=== PATIENT | male | born 1975 | race Caucasian/White ===

== ENCOUNTER 2020-09-05 11:12 | Emergency (ER) | payer MEDICAID ==
[~2020-09-05] VITALS: Ht 177.8 cm; Wt 129.3 kg
--- NOTE | 2020-09-05 11:12 | NUR ---
Pt brought by self, A&Ox4, pt presents to ER with swelling/redness/pain on L foot, skin pink and warm, cap refill <3, VSS
[2020-09-05 11:21] VITALS: BP_SYST 151
--- NOTE | 2020-09-05 11:24 | NUR ---
Patient to ER bed Tent 1 to gown for evaluation. Side rails up.
--- NOTE | 2020-09-05 11:26 | NUR ---
Dr Castañeda evaluaitng patient in the tent
[2020-09-05 11:48] VITALS: BP_SYST 151
--- NOTE | 2020-09-05 11:49 | NUR ---
Patient given written and verbal discharge instructions and verbalizes understanding. ER MD discussed with patient the results and treatment provided. Patient in stable condition. ID arm band removed. Rx of keflex given. Patient educated on pain management and to follow up with PMD. Pain Scale 3/10 tolerable for patient. Opportunity for questions provided and answered. Medication side effect fact sheet provided.
== END 2020-09-05 11:49 | disposition home or self-care (01) ==
LOC: SED 11:12
DX: L03.116 Cellulitis of left lower limb (principal); F11.90 Opioid use, unspecified, uncomplicated
CPT/HCPCS: 99283

== ENCOUNTER 2020-09-26 10:44 | Emergency (ER) | payer MEDICAID ==
[~2020-09-26] VITALS: Ht 177.8 cm; Wt 113.4 kg
[2020-09-26 10:55] VITALS: BP_SYST 140
[2020-09-26] MEDS ORDERED: SULF1TAB48 PO (11:07)
[2020-09-26] MEDS ORDERED: CEPH-568 PO (11:07)
[2020-09-26 11:15] VITALS: BP_SYST 140
== END 2020-09-26 11:15 | disposition home or self-care (01) ==
LOC: SED 10:44
DX: L03.116 Cellulitis of left lower limb (principal)
CPT/HCPCS: 99283

== ENCOUNTER 2020-11-16 21:02 | Emergency (ER) | payer MEDICAID ==
[~2020-11-16] VITALS: Ht 177.8 cm; Wt 113.4 kg
[~2020-11-16 21:02] MED LIST: CEPH-568 PO; SULF1TAB48 PO
[2020-11-16 21:05] VITALS: BP_SYST 152
[2020-11-16] MEDS ORDERED: LEVO50CA4 PO (21:12)
[2020-11-16] MEDS ORDERED: LISI20TA30 PO (21:13)
[2020-11-16] MEDS: LIDOCAINE 1% 10 MG/ML, 20 ML MDV INJ ONE (22:30)
[2020-11-16] MEDS: BACITRACIN 1 GM OINT TP ONE (22:30)
[2020-11-16] MEDS ORDERED: CLIN300C12 PO (22:35)
[2020-11-16] MEDS: DIPH-TET-PERTUS Vaccine 0.5 ML VIAL (ADACEL) I.M. ONE (22:38)
[2020-11-16 22:45] VITALS: BP_SYST 130
== END 2020-11-16 22:45 | disposition home or self-care (01) ==
LOC: SED 21:02
DX: L02.414 Cutaneous abscess of left upper limb (principal); Z79.899 Other long term (current) drug therapy
CPT/HCPCS: 10060; 90471; 90715; 99283; J2001

== ENCOUNTER 2020-12-03 14:19 | Emergency (ER) | payer MEDICAID ==
[~2020-12-03] VITALS: Ht 177.8 cm; Wt 111.1 kg
[~2020-12-03 14:19] MED LIST changes: +CLIN300C12 PO; +LEVO50CA4 PO; +LISI20TA30 PO
[2020-12-03 14:29] VITALS: BP_SYST 142
[2020-12-03 15:28] LABS: BASOPHILS % (AUTO) 0.2 % (0.0-2.0); EOSINOPHILS % (AUTO) 0.7 % (0.0-4.0); HEMATOCRIT 38.1 % (36-54); HEMOGLOBIN 13.5 g/dL (14.0-18.0); LYMPHOCYTES % (AUTO) 28.4 % (20.5-51.5); MEAN CORPUSCULAR HEMOGLOBIN 31 pg (27-31); MEAN CORPUSCULAR HGB CONC 35 % (32-36); MEAN CORPUSCULAR VOLUME 87 fL (79.0-98.0); MONOCYTES # (AUTO) 0.7 K/uL (0.0-1.0); MONOCYTES % (AUTO) 9.7 % (1.7-9.3); NEUTROPHILS # (AUTO) 4.4 K/uL (1.8-7.7); PLATELET COUNT (AUTO) 122 K/uL (130-430); RED BLOOD CELL COUNT(AUTO) 4.36 MIL/uL (4.2-6.2); RED CELL DISTRIBUTION WIDTH 13.2 % (9.0-15.0); WHITE BLOOD COUNT (AUTO) 7.2 K/uL (4.8-10.8)
[2020-12-03 15:46] LABS: ANION GAP 6 (5-15); CALCIUM 8.1 mg/dL (8.4-11.0); CHLORIDE 102 mmol/L (98-107); CREATININE 0.83 mg/dL (0.55-1.30); GLUCOSE 119 mg/dL (70-99); SODIUM SERUM 136 mmol/L (136-145); UREA NITROGEN, BLOOD 11 mg/dL (8-21)
[2020-12-03 15:48] LABS: INR 1.1 (0.80-1.20); PROTHROMBIN TIME 11.2 SECS (9.5-12.5)
[2020-12-03 15:49] LABS: GFR AFRICAN AMERICAN 128 mL/min (>90)
[2020-12-03 15:50] LABS: C-REACTIVE PROTEIN QUANT < 0.2 mg/dL (0-0.5)
[2020-12-03 15:51] LABS: ALANINE AMINOTRANSFERASE 68 U/L (12-78); ALBUMIN 3.4 g/dL (3.4-4.8); ASPARTATE AMINOTRANSFERASE 68 U/L (10-37); TOTAL BILIRUBIN 0.5 mg/dL (0.0-1.0)
[2020-12-03] MEDS ORDERED: CLIN300C12 PO (16:42)
[2020-12-03] MEDS ORDERED: CLINDAMYCIN HCL 150 MG CAPSULE PO ONE (16:45)
[2020-12-03 16:55] VITALS: BP_SYST 142
== END 2020-12-03 16:55 | disposition home or self-care (01) ==
LOC: SED 14:19
DX: L03.113 Cellulitis of right upper limb (principal); I10 Essential (primary) hypertension; Z79.899 Other long term (current) drug therapy
CPT/HCPCS: 36415; 80053; 83605; 85025; 85610-TC; 85730-TC; 86140; 99284

== ENCOUNTER 2020-12-08 00:48 | Emergency (ER) | payer MEDICAID ==
[~2020-12-08] VITALS: Ht 177.8 cm; Wt 111.6 kg
[2020-12-08 00:48] VITALS: BP_SYST 146
[2020-12-08 02:36] VITALS: BP_SYST 146
== END 2020-12-08 02:36 | disposition home or self-care (01) ==
LOC: SED 00:48
DX: L02.414 Cutaneous abscess of left upper limb (principal); I10 Essential (primary) hypertension; E07.9 Disorder of thyroid, unspecified; F11.90 Opioid use, unspecified, uncomplicated; Z79.899 Other long term (current) drug therapy
CPT/HCPCS: 99281

== ENCOUNTER 2020-12-20 15:25 | Emergency (ER) | payer MEDICAID ==
[~2020-12-20] VITALS: Ht 177.8 cm; Wt 108.9 kg
[2020-12-20 15:25] VITALS: BP_SYST 150
[2020-12-20] MEDS ORDERED: DOXY-244 PO (16:24)
[2020-12-20] MEDS ORDERED: DOXYCYCLINE HYCLATE 100 MG CAPSULE PO ONE (16:30)
[2020-12-20 16:34] VITALS: BP_SYST 142
== END 2020-12-20 16:37 | disposition home or self-care (01) ==
LOC: SED 15:25
DX: L02.413 Cutaneous abscess of right upper limb (principal); I10 Essential (primary) hypertension; E07.9 Disorder of thyroid, unspecified; F13.90 Sedative, hypnotic, or anxiolytic use, unspecified, uncomplicated; Z90.49 Acquired absence of other specified parts of digestive tract; Z79.899 Other long term (current) drug therapy
CPT/HCPCS: 99283

== ENCOUNTER 2021-01-02 09:04 | Emergency (ER) | payer MEDICAID ==
[~2021-01-02] VITALS: Ht 177.8 cm; Wt 104.3 kg
[~2021-01-02 09:04] MED LIST changes: +DOXY-244 PO
[2021-01-02 09:10] VITALS: BP_SYST 135
[2021-01-02] MEDS ORDERED: LIDOCAINE 1% 10 MG/ML, 20 ML MDV INJ ONE (10:00)
[2021-01-02] MEDS ORDERED: SULF1TAB47 PO (10:08)
[2021-01-02 10:30] VITALS: BP_SYST 134
== END 2021-01-02 10:30 | disposition home or self-care (01) ==
LOC: SED 09:04
DX: L02.413 Cutaneous abscess of right upper limb (principal); L03.115 Cellulitis of right lower limb; I10 Essential (primary) hypertension; F11.90 Opioid use, unspecified, uncomplicated; Z79.899 Other long term (current) drug therapy
CPT/HCPCS: 10060; 99284; J2001

== ENCOUNTER 2021-02-04 10:04 | Emergency (ER) | payer MEDICAID ==
[~2021-02-04] VITALS: Ht 177.8 cm; Wt 106.6 kg
[~2021-02-04 10:04] MED LIST changes: +SULF1TAB47 PO
[2021-02-04 10:09] VITALS: BP_SYST 159
[2021-02-04] MEDS ORDERED: VANCOMYCIN HCL 1 MG in D5W 250 ML IV ONE (10:45)
[2021-02-04 11:22] LABS: BASOPHILS % (AUTO) 0.3 % (0.0-2.0); EOSINOPHILS # (AUTO) 0.1 K/uL (0.0-0.4); HEMATOCRIT 37.7 % (36-54); LYMPHOCYTES # (AUTO) 1.8 K/uL (1.0-5.5); LYMPHOCYTES % (AUTO) 26.5 % (20.5-51.5); MEAN CORPUSCULAR HEMOGLOBIN 30 pg (27-31); MEAN CORPUSCULAR HGB CONC 35 % (32-36); MEAN CORPUSCULAR VOLUME 87 fL (79.0-98.0); MONOCYTES # (AUTO) 0.7 K/uL (0.0-1.0); MONOCYTES % (AUTO) 10.1 % (1.7-9.3); NEUTROPHILS # (AUTO) 4.3 K/uL (1.8-7.7); NEUTROPHILS % (AUTO) 62.1 % (40.0-70.0); PLATELET COUNT (AUTO) 140 K/uL (130-430); RED BLOOD CELL COUNT(AUTO) 4.33 MIL/uL (4.2-6.2); RED CELL DISTRIBUTION WIDTH 12.4 % (9.0-15.0); WHITE BLOOD COUNT (AUTO) 6.9 K/uL (4.8-10.8)
[2021-02-04 11:32] LABS: CALCIUM 8.7 mg/dL (8.4-11.0); CREATININE 0.7 mg/dL (0.55-1.30); POTASSIUM 4.2 mmol/L (3.5-5.1)
[2021-02-04 11:34] LABS: INR 1.1 (0.80-1.20)
[2021-02-04 11:38] LABS: ALBUMIN 3.3 g/dL (3.4-4.8); TOTAL BILIRUBIN 0.4 mg/dL (0.0-1.0)
[2021-02-04] MEDS ORDERED: VANCOMYCIN HCL 1000 MG/VIAL IV ONE (11:53)
[2021-02-04] MEDS ORDERED: VANCOMYCIN HCL 500 MG/VIAL IV ONE (12:52)
[2021-02-04] MEDS ORDERED: VANCOMYCIN HCL 500 MG in NS 100 ML IV ONE (13:00)
[2021-02-04] MEDS ORDERED: CLIN300C12 PO (13:11)
[2021-02-04 14:46] VITALS: BP_SYST 136
== END 2021-02-04 14:44 | disposition home or self-care (01) ==
LOC: SED 10:04
DX: L03.115 Cellulitis of right lower limb (principal); L03.116 Cellulitis of left lower limb; F11.988 Opioid use, unspecified with other opioid-induced disorder; I10 Essential (primary) hypertension; Z79.899 Other long term (current) drug therapy
CPT/HCPCS: 36415; 80053; 83605; 85025; 85610; 87040; 96365; 96366; 99284; J3370 ×2

== ENCOUNTER 2021-02-13 16:10 | Emergency (ER) | payer MEDICAID ==
[~2021-02-13] VITALS: Ht 177.8 cm; Wt 108.9 kg
[2021-02-13 16:46] VITALS: BP_SYST 109
--- NOTE | 2021-02-13 16:59 | NUR ---
Patient triaged and placed in waiting room. VSS and patient appears in no acute distress at this time. Accompanied by self, awaiting available bed, and MD notified of need for MSE.
--- NOTE | 2021-02-13 17:00 | NUR ---
Patient to triage for evaluation. Side rails up. Assumed care
--- NOTE | 2021-02-13 17:01 | NUR ---
ER in triage examining patient.
[2021-02-13] MEDS ORDERED: CLIN300C12 PO (17:02)
[2021-02-13 17:05] VITALS: BP_SYST 109
--- NOTE | 2021-02-13 17:05 | NUR ---
Patient given written and verbal discharge instructions and verbalizes understanding. ER MD discussed with patient the results and treatment provided. Patient in stable condition. ID arm band removed. Rx of clindamycin given. Patient educated on pain management and to follow up with PMD. Pain Scale 0. Opportunity for questions provided and answered. Medication side effect fact sheet provided.
== END 2021-02-13 17:05 | disposition home or self-care (01) ==
LOC: SED 16:10
DX: L03.116 Cellulitis of left lower limb (principal); Z76.0 Encounter for issue of repeat prescription; I10 Essential (primary) hypertension; Z79.899 Other long term (current) drug therapy
CPT/HCPCS: 99281

== ENCOUNTER 2021-02-16 13:16 | Emergency (ER) | payer MEDICAID ==
[~2021-02-16] VITALS: Ht 177.8 cm; Wt 104.3 kg
[2021-02-16 13:25] VITALS: BP_SYST 150
--- NOTE | 2021-02-16 13:25 | NUR ---
Patient to ER bed 7 to gown for evaluation. Side rails up. Report given to KIP BLACK.
--- NOTE | 2021-02-16 13:29 | NUR ---
ER at bedside examining patient.
--- NOTE | 2021-02-16 13:29 | NUR ---
ER at bedside examining patient.
--- NOTE | 2021-02-16 13:30 | NUR ---
Pt. came in with concern that left leg infected states he finished antibiotics after infection but leg still red and swollen
[2021-02-16 13:57] LABS: BASOPHILS # (AUTO) 0.1 K/uL (0.0-0.2); BASOPHILS % (AUTO) 0.7 % (0.0-2.0); EOSINOPHILS # (AUTO) 0.1 K/uL (0.0-0.4); EOSINOPHILS % (AUTO) 0.9 % (0.0-4.0); RED CELL DISTRIBUTION WIDTH 12.7 % (9.0-15.0)
[2021-02-16 14:14] LABS: HEMOGLOBIN 13.6 g/dL (14.0-18.0); LYMPHOCYTES # (AUTO) 2.6 K/uL (1.0-5.5); LYMPHOCYTES % (AUTO) 23.8 % (20.5-51.5); MEAN CORPUSCULAR HEMOGLOBIN 30 pg (27-31); MEAN CORPUSCULAR HGB CONC 35 % (32-36); MEAN CORPUSCULAR VOLUME 87 fL (79.0-98.0); MONOCYTES # (AUTO) 0.9 K/uL (0.0-1.0); MONOCYTES % (AUTO) 8.6 % (1.7-9.3); NEUTROPHILS # (AUTO) 7.2 K/uL (1.8-7.7); PLATELET COUNT (AUTO) 180 K/uL (130-430); WHITE BLOOD COUNT (AUTO) 10.9 K/uL (4.8-10.8)
[2021-02-16 14:23] LABS: CALCIUM 9.1 mg/dL (8.4-11.0); CREATININE 0.76 mg/dL (0.55-1.30); POTASSIUM 3.8 mmol/L (3.5-5.1)
[2021-02-16 14:29] LABS: ALBUMIN 3.6 g/dL (3.4-4.8); TOTAL BILIRUBIN 0.6 mg/dL (0.0-1.0)
[2021-02-16] MEDS ORDERED: CLIN300C12 PO (14:39)
[2021-02-16 14:42] LABS: C-REACTIVE PROTEIN QUANT 0.4 mg/dL (0-0.5)
[2021-02-16] MEDS ORDERED: CLINDAMYCIN HCL 150 MG CAPSULE PO ONE (14:45)
[2021-02-16 15:04] VITALS: BP_SYST 148
--- NOTE | 2021-02-16 15:06 | NUR ---
Patient given written and verbal discharge instructions and verbalizes understanding. Dr. Chan discussed with patient the results and treatment provided. Patient in stable condition. ID arm band removed. Rx of Clindamycin 300mg given. Patient educated on pain management and to follow up with PMD. Pain Scale 0. Opportunity for questions provided and answered. Medication side effect fact sheet provided.
== END 2021-02-16 15:06 | disposition home or self-care (01) ==
LOC: SED 13:16
DX: L03.116 Cellulitis of left lower limb (principal); I10 Essential (primary) hypertension; Z79.899 Other long term (current) drug therapy
CPT/HCPCS: 36415; 80053; 83605; 85025; 86140; 99283

== ENCOUNTER 2021-02-20 11:25 | Emergency (ER) | payer MEDICAID ==
[~2021-02-20] VITALS: Ht 177.8 cm; Wt 107.0 kg
[2021-02-20 11:42] VITALS: BP_SYST 155
[2021-02-20 13:56] VITALS: BP_SYST 145
== END 2021-02-20 12:10 | disposition home or self-care (01) ==
LOC: SED 11:25
DX: I83.92 Asymptomatic varicose veins of left lower extremity (principal); I10 Essential (primary) hypertension; Z79.899 Other long term (current) drug therapy
CPT/HCPCS: 99281

== ENCOUNTER 2021-02-24 06:42 | Emergency (ER) | payer MEDICAID ==
[~2021-02-24] VITALS: Ht 177.8 cm; Wt 107.0 kg
[2021-02-24 06:51] VITALS: BP_SYST 148
--- NOTE | 2021-02-24 06:51 | NUR ---
Patient to ER bed 4 to gown for evaluation. Side rails up. Report given to TANG BLACK.
--- NOTE | 2021-02-24 06:54 | NUR ---
Patient AAOx4 and ambulatory arrived for wound check. patient was seen on 02/20/21 for bilateral lower extremity cellulitis d/t IV drug use. patient was prescribed clindamycin and completed RX. Patient now would like MD to check the wound and see if he needs additional ABT. Patient states having tenderness to lower extremities but denies pain at this time. VSS.
--- NOTE | 2021-02-24 07:04 | NUR ---
Dr. Fitch at bedside for patient evaluation.
--- NOTE | 2021-02-24 07:06 | NUR ---
Report given to WAYNE Fernandez who will assume care of patient.
[2021-02-24] MEDS ORDERED: CEPH250C PO (07:12)
[2021-02-24] MEDS ORDERED: PRED20TA PO (07:12)
--- NOTE | 2021-02-24 07:18 | NUR ---
Pt. here for wound recheck to left leg, skin intact, redness and swelling noted, with 2+pitting edema; pt also has pitting edema to right leg 1+. Denies pain to either extremity.
[2021-02-24 07:20] VITALS: BP_SYST 131
--- NOTE | 2021-02-24 07:21 | NUR ---
Patient given written and verbal discharge instructions and verbalizes understanding. ER MD Diehl discussed with patient the results and treatment provided. Patient in stable condition. ID arm band removed. Rx of Keflex and Prednisone given. Patient educated on pain management and to follow up with PMD. Pain Scale 0.Opportunity for questions provided and answered. Medication side effect fact sheet provided. Addendum: 02/24/21 at [address] Fitch
== END 2021-02-24 07:21 | disposition home or self-care (01) ==
LOC: SED 06:42
DX: L03.116 Cellulitis of left lower limb (principal); L03.115 Cellulitis of right lower limb; I10 Essential (primary) hypertension; F11.90 Opioid use, unspecified, uncomplicated; F12.90 Cannabis use, unspecified, uncomplicated; Z79.899 Other long term (current) drug therapy
CPT/HCPCS: 99283

== ENCOUNTER 2021-04-01 17:12 | Emergency (ER) | payer MEDICAID ==
[~2021-04-01 17:12] MED LIST changes: +CEPH250C PO; +PRED20TA PO
--- NOTE | 2021-04-01 18:05 | NUR ---
Patient left without being seen.
== END 2021-04-01 18:05 | disposition left against medical advice (07) ==
LOC: SED 17:12
DX: L08.9 Local infection of the skin and subcutaneous tissue, unspecified (principal); Z53.21 Procedure and treatment not carried out due to patient leaving prior to being seen by health care provider

== ENCOUNTER 2021-04-02 13:41 | Emergency (ER) | payer MEDICAID ==
[~2021-04-02] VITALS: Ht 177.8 cm; Wt 108.9 kg
[2021-04-02 13:44] VITALS: BP_SYST 153
--- NOTE | 2021-04-02 13:45 | NUR ---
Patient triaged and placed in waiting room. VSS and patient appears in no acute distress at this time. Accompanied by self, awaiting available bed, and MD notified of need for MSE.
--- NOTE | 2021-04-02 15:00 | NUR ---
Patient left without being seen.
== END 2021-04-02 14:46 | disposition left against medical advice (07) ==
LOC: SED 13:41
DX: L08.9 Local infection of the skin and subcutaneous tissue, unspecified (principal); Z53.21 Procedure and treatment not carried out due to patient leaving prior to being seen by health care provider

== ENCOUNTER 2021-04-02 23:43 | Emergency (ER) | payer MEDICAID ==
[~2021-04-02] VITALS: Ht 177.8 cm; Wt 108.9 kg
[2021-04-02 23:52] VITALS: BP_SYST 126
[2021-04-03] MEDS ORDERED: VANCOMYCIN HCL 1,000 MG in NS 250 ML IV ONE (00:45)
[2021-04-03] MEDS ORDERED: VANCOMYCIN HCL 1000 MG/VIAL IV ONE (01:46)
[2021-04-03] MEDS ORDERED: cefTRIAXone 1 GM in LIDOCAINE 1%, 20 ML MDV 2.1 ML IM ONE (02:00)
[2021-04-03] MEDS ORDERED: cefTRIAXone 1 GM VIAL ONE (02:05)
[2021-04-03 02:27] VITALS: BP_SYST 132
[2021-04-04] MEDS ORDERED: IBUP-1969 PO (09:22)
== END 2021-04-03 02:27 | disposition home or self-care (01) ==
LOC: SED 23:43
DX: L03.116 Cellulitis of left lower limb (principal); I10 Essential (primary) hypertension; Z79.899 Other long term (current) drug therapy
CPT/HCPCS: 36415; 87040; 96372; 99283; J0696; J3370

== ENCOUNTER 2021-04-04 08:12 | Emergency (ER) | payer MEDICAID ==
[~2021-04-04] VITALS: Ht 177.8 cm; Wt 108.9 kg
[2021-04-04 08:12] VITALS: BP_SYST 124
[2021-04-04] MEDS ORDERED: IBUP-1969 PO (09:22)
== END 2021-04-04 10:24 | disposition left against medical advice (07) ==
LOC: SED 08:12
DX: L03.116 Cellulitis of left lower limb (principal); I10 Essential (primary) hypertension; Z79.899 Other long term (current) drug therapy
CPT/HCPCS: 99282; 99283

== ENCOUNTER 2021-05-31 10:26 | Emergency (ER) | payer MEDICAID ==
[~2021-05-31] VITALS: Ht 177.8 cm; Wt 104.3 kg
[2021-05-31 10:26] VITALS: BP_SYST 159
[~2021-05-31 10:26] MED LIST changes: +IBUP-1969 PO
[2021-05-31] MEDS ORDERED: SULF1TAB48 PO (11:23)
[2021-05-31 11:55] VITALS: BP_SYST 139
== END 2021-05-31 12:00 | disposition home or self-care (01) ==
LOC: SED 10:26
DX: L03.116 Cellulitis of left lower limb (principal); I10 Essential (primary) hypertension; F11.90 Opioid use, unspecified, uncomplicated; Z79.899 Other long term (current) drug therapy
CPT/HCPCS: 99283

== ENCOUNTER 2021-07-21 15:44 | Emergency (ER) | payer MEDICAID ==
[~2021-07-21] VITALS: Ht 177.8 cm; Wt 99.8 kg
[2021-07-21 15:48] VITALS: BP_SYST 153
--- NOTE | 2021-07-21 15:48 | NUR ---
Placed in room 6 . Placed on athletic monitor, blood pressure machine and pulse oximeter. To gown for exam. Side rails up. Report given to JASIEL POLK.
--- NOTE | 2021-07-21 15:55 | NUR ---
PT BIB SELF C/O PAIN 02/23 TO HIS BILATERAL FOOT AND ANKLE WITH SWELLING X1 DAY. PT AMBULATORY, A&OX4.
--- NOTE | 2021-07-21 15:55 | NUR ---
ER Dr. Chan at bedside examining patient.
[2021-07-21 16:10] VITALS: BP_SYST 153
--- NOTE | 2021-07-21 17:20 | NUR ---
PT WAS SEEN BY DR. ROBERSON THEN ELOPED.
== END 2021-07-21 17:20 | disposition left against medical advice (07) ==
LOC: SED 15:44
DX: R60.0 Localized edema (principal); I10 Essential (primary) hypertension; Z79.899 Other long term (current) drug therapy
CPT/HCPCS: 71045; 93005; 93971; 99284

== ENCOUNTER 2021-08-04 15:11 | Emergency (ER) | payer MEDICAID ==
[~2021-08-04] VITALS: Ht 177.8 cm; Wt 99.8 kg
[2021-08-04 15:59] VITALS: BP_SYST 139
[2021-08-04] MEDS ORDERED: CEPH-548 PO (16:35)
[2021-08-04] MEDS ORDERED: SULF1TAB48 PO (16:36)
== END 2021-08-04 17:04 | disposition left against medical advice (07) ==
LOC: SED 15:11
DX: L03.116 Cellulitis of left lower limb (principal); F11.988 Opioid use, unspecified with other opioid-induced disorder; I10 Essential (primary) hypertension; Z79.899 Other long term (current) drug therapy
CPT/HCPCS: 99283

== ENCOUNTER 2021-08-06 01:47 | Emergency (ER) | payer MEDICAID ==
[~2021-08-06] VITALS: Ht 177.8 cm; Wt 99.8 kg
[~2021-08-06 01:47] MED LIST changes: +CEPH-548 PO
[2021-08-06 01:50] VITALS: BP_SYST 130
[2021-08-06] MEDS ORDERED: CLIN300C12 PO (02:51)
[2021-08-06] MEDS ORDERED: CLINDAMYCIN HCL 150 MG CAPSULE PO ONE (03:00)
[2021-08-06 03:05] VITALS: BP_SYST 130
== END 2021-08-06 03:05 | disposition home or self-care (01) ==
LOC: SED 01:47
DX: L03.116 Cellulitis of left lower limb (principal); L03.115 Cellulitis of right lower limb; L03.114 Cellulitis of left upper limb; L03.113 Cellulitis of right upper limb; I10 Essential (primary) hypertension; Z79.899 Other long term (current) drug therapy
CPT/HCPCS: 99283

== ENCOUNTER 2021-08-29 20:44 | Emergency (ER) | payer MEDICAID, SELFPAY ==
[~2021-08-29] VITALS: Ht 177.8 cm; Wt 95.7 kg
[~2021-08-29 20:44] MED LIST changes: +CLIN-142 PO; -CLIN300C12 PO
[2021-08-29 20:50] VITALS: BP_SYST 139
--- NOTE | 2021-08-29 20:50 | NUR ---
Patient triaged and placed in waiting room. VSS and patient appears in no acute distress at this time. Accompanied by FAM MEMBER, awaiting available bed, and MD notified of need for MSE.
--- NOTE | 2021-08-29 22:30 | NUR ---
call pt name in the waiting room,no answer.
--- NOTE | 2021-08-29 22:35 | NUR ---
call pt name in the waiting room,no answer.
--- NOTE | 2021-08-29 22:40 | NUR ---
call pt name in the waiting room,no answer.
== END 2021-08-29 22:40 | disposition left against medical advice (07) ==
LOC: SED 20:44
DX: K08.89 Other specified disorders of teeth and supporting structures (principal); Z53.21 Procedure and treatment not carried out due to patient leaving prior to being seen by health care provider

== ENCOUNTER 2021-09-14 01:34 | Emergency (ER) | payer MEDICAID, SELFPAY ==
[~2021-09-14] VITALS: Ht 177.8 cm; Wt 108.9 kg
[2021-09-14 02:02] VITALS: BP_SYST 132
--- NOTE | 2021-09-14 02:14 | NUR ---
Patient to ER bed 5 to gown for evaluation. Side rails up. Report given to Bong.
--- NOTE | 2021-09-14 02:15 | NUR ---
ER Dr. Headley at bedside examining patient.
[2021-09-14] MEDS ORDERED: cefTRIAXone 1 GM IVPB PREMIX 50 ML IV ONE (02:30)
[2021-09-14 03:16] LABS: BASOPHILS % (AUTO) 0.3 % (0.0-2.0); HEMATOCRIT 33.8 % (36-54); HEMOGLOBIN 11.5 g/dL (14.0-18.0); LYMPHOCYTES # (AUTO) 1.4 K/uL (1.0-5.5); LYMPHOCYTES % (AUTO) 33.9 % (20.5-51.5); MEAN CORPUSCULAR HEMOGLOBIN 28 pg (27-31); MEAN CORPUSCULAR HGB CONC 34 % (32-36); MEAN CORPUSCULAR VOLUME 83 fL (79.0-98.0); MONOCYTES # (AUTO) 0.6 K/uL (0.0-1.0); MONOCYTES % (AUTO) 14.7 % (1.7-9.3); NEUTROPHILS # (AUTO) 2.1 K/uL (1.8-7.7); NEUTROPHILS % (AUTO) 50.1 % (40.0-70.0); PLATELET COUNT (AUTO) 144 K/uL (130-430); RED BLOOD CELL COUNT(AUTO) 4.07 MIL/uL (4.2-6.2); RED CELL DISTRIBUTION WIDTH 13.5 % (9.0-15.0); WHITE BLOOD COUNT (AUTO) 4.1 K/uL (4.8-10.8)
[2021-09-14 03:22] LABS: CALCIUM 8.4 mg/dL (8.4-11.0); CREATININE 0.56 mg/dL (0.55-1.30)
[2021-09-14 03:28] LABS: ALBUMIN 3.1 g/dL (3.4-4.8); TOTAL BILIRUBIN 0.4 mg/dL (0.0-1.0)
--- NOTE | 2021-09-14 04:00 | NUR ---
Patient does not wish to proceed with medical care recommended by . Patient given information related to possible complications, up to and including , which could occur as a result of leaving hospital at this time. Patient verbalizes understanding of risks involved leaving against medical advice. Patient has signed AMA form.
[2021-09-14 05:27] VITALS: BP_SYST 132
== END 2021-09-14 04:00 | disposition left against medical advice (07) ==
LOC: SED 01:34
DX: L03.114 Cellulitis of left upper limb (principal); L03.113 Cellulitis of right upper limb; I10 Essential (primary) hypertension; F19.10 Other psychoactive substance abuse, uncomplicated; Z79.899 Other long term (current) drug therapy
CPT/HCPCS: 36415; 71045; 80053; 83605; 85025; 87040; 99284

== ENCOUNTER 2021-09-15 14:54 | Emergency (ER) | payer MEDICAID, SELFPAY ==
[~2021-09-15] VITALS: Ht 177.8 cm; Wt 104.3 kg
[2021-09-15 15:35] VITALS: BP_SYST 133
--- NOTE | 2021-09-15 15:35 | NUR ---
Patient triaged and placed in waiting room. VSS and patient appears in no acute distress at this time. Accompanied by SELF, awaiting available bed, and MD notified of need for MSE.
--- NOTE | 2021-09-15 15:38 | NUR ---
LEFT WITHOUT BEING SEEN. PATIENT REPORTS GETTING AN RX FOR ABX AND NO LONGER WANTS TO BE SEEN.
[2021-09-15] MEDS ORDERED: FLUCONAZOLE 100 MG TABLET (DIFLUCAN) ONE (20:15)
== END 2021-09-15 15:35 | disposition left against medical advice (07) ==
LOC: SED 14:54
DX: M79.89 Other specified soft tissue disorders (principal); Z53.21 Procedure and treatment not carried out due to patient leaving prior to being seen by health care provider

== ENCOUNTER 2021-11-26 19:11 | Emergency (ER) | payer MEDICAID ==
[~2021-11-26] VITALS: Ht 177.8 cm; Wt 111.6 kg
[2021-11-26 19:30] VITALS: BP_SYST 138
--- NOTE | 2021-11-26 19:30 | NUR ---
Patient ambulatory t bed 6 for treatment and evaluation
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
[2021-11-26 20:29] LABS: BASOPHILS # (AUTO) 0.1 K/uL (0.0-0.2); BASOPHILS % (AUTO) 1.5 % (0.0-2.0); EOSINOPHILS # (AUTO) 0.2 K/uL (0.0-0.4); EOSINOPHILS % (AUTO) 3.9 % (0.0-4.0); HEMATOCRIT 38.1 % (36-54); HEMOGLOBIN 12.7 g/dL (14.0-18.0); LYMPHOCYTES # (AUTO) 1.2 K/uL (1.0-5.5); LYMPHOCYTES % (AUTO) 26.7 % (20.5-51.5); MEAN CORPUSCULAR HEMOGLOBIN 27 pg (27-31); MEAN CORPUSCULAR HGB CONC 33 % (32-36); MEAN CORPUSCULAR VOLUME 81 fL (79.0-98.0); MONOCYTES # (AUTO) 0.7 K/uL (0.0-1.0); MONOCYTES % (AUTO) 14.4 % (1.7-9.3); NEUTROPHILS # (AUTO) 2.4 K/uL (1.8-7.7); NEUTROPHILS % (AUTO) 53.5 % (40.0-70.0); PLATELET COUNT (AUTO) 135 K/uL (130-430); RED BLOOD CELL COUNT(AUTO) 4.67 MIL/uL (4.2-6.2); WHITE BLOOD COUNT (AUTO) 4.5 K/uL (4.8-10.8)
[2021-11-26 20:39] LABS: ANION GAP 5 (5-15); CALCIUM 9.1 mg/dL (8.4-11.0); CHLORIDE 102 mmol/L (98-107); CREATININE 0.61 mg/dL (0.55-1.30); GLUCOSE 133 mg/dL (70-99); POTASSIUM 4.2 mmol/L (3.5-5.1); SODIUM SERUM 136 mmol/L (136-145); UREA NITROGEN, BLOOD 11 mg/dL (8-21)
[2021-11-26 20:48] LABS: ALANINE AMINOTRANSFERASE 58 U/L (12-78); ALBUMIN 3.3 g/dL (3.4-4.8); ASPARTATE AMINOTRANSFERASE 54 U/L (10-37); TOTAL BILIRUBIN 0.1 mg/dL (0.0-1.0)
[2021-11-26 20:53] LABS: GFR AFRICAN AMERICAN 181 mL/min (>90)
[2021-11-26 20:54] LABS: C-REACTIVE PROTEIN QUANT 0.3 mg/dL (0-0.5)
--- NOTE | 2021-11-26 20:59 | NUR ---
[employer] OPER[employer] WAS CALLED, WAITING FOR PROCEDURE TO BE DONE.
--- NOTE | 2021-11-26 21:23 | NUR ---
DR ROBERSON INFORMED THAT US NOT DONE YET, ADRIAN GARZA INFORMED THAT US HAS NO ONE TO DO IT.
[2021-11-26] MEDS ORDERED: IBUP-1971 PO (21:36)
[2021-11-26] MEDS ORDERED: HYDR-3917 PO (21:36)
--- NOTE | 2021-11-26 21:46 | NUR ---
Patient given written and verbal discharge instructions and verbalizes understanding. ER MD discussed with patient the results and treatment provided. Patient in stable condition. ID arm band removed. Rx of NORCO, IBUPROFEN given. Patient educated on pain management and to follow up with PMD. Pain Scale . Opportunity for questions provided and answered. Medication side effect fact sheet provided.
[2021-11-26 21:47] VITALS: BP_SYST 138
== END 2021-11-26 21:47 | disposition home or self-care (01) ==
LOC: SED 19:11
DX: G56.92 Unspecified mononeuropathy of left upper limb (principal); I10 Essential (primary) hypertension; E07.9 Disorder of thyroid, unspecified
CPT/HCPCS: 36415; 71045; 80053; 84484; 85025; 86140; 93005; 99284

== ENCOUNTER 2021-12-23 02:52 | Emergency (ER) | payer MEDICAID ==
[~2021-12-23 02:52] MED LIST changes: +HYDR-3917 PO; +IBUP-1971 PO
[2021-12-23 03:08] VITALS: BP_SYST 150
[2021-12-23] MEDS ORDERED: METHADONE HCL 10 MG TABLET PO ONE (03:15)
[2021-12-23] MEDS ORDERED: APIXABAN 2.5 MG TABLET PO SCH (03:15)
[2021-12-23] MEDS ORDERED: APIXABAN 2.5 MG TABLET ONE (03:38)
--- NOTE | 2021-12-23 03:48 | NUR ---
Patient given written and verbal discharge instructions and verbalizes understanding. ER MD discussed with patient the results and treatment provided. Patient in stable condition. ID arm band removed. No Rx of given. Patient educated on pain management and to follow up with PMD. Pain Scale . Opportunity for questions provided and answered. Medication side effect fact sheet provided. Patient medicated with methadone and eliquis. Ok to book medical clearance given by physician in charge. Vs stable. Left with the following officers: Deputy Buckley [id number] Depkaty Hope [id number]
[2021-12-23 03:56] VITALS: BP_SYST 150
== END 2021-12-23 03:58 ==
LOC: SED 02:52
DX: F11.23 Opioid dependence with withdrawal (principal); Z13.9 Encounter for screening, unspecified; I10 Essential (primary) hypertension; Z79.899 Other long term (current) drug therapy; Z86.718 Personal history of other venous thrombosis and embolism
CPT/HCPCS: 99283; 99285

== ENCOUNTER 2021-12-23 06:08 | Emergency (ER) | payer MEDICAID ==
[2021-12-23 06:33] VITALS: BP_SYST 122
[2021-12-23 07:30] VITALS: BP_SYST 121
--- NOTE | 2021-12-23 07:32 | NUR ---
Patient given written and verbal discharge instructions and verbalizes understanding. ER MD discussed with patient the results and treatment provided. Patient in stable condition. ID arm band removed. NO Rx given. Patient educated on pain management and to follow up with PMD. Pain Scale 0/10. Opportunity for questions provided and answered. Medication side effect fact sheet provided.
== END 2021-12-23 07:30 ==
LOC: SED 06:08
DX: R05.9 Cough, unspecified (principal); I10 Essential (primary) hypertension; Z79.899 Other long term (current) drug therapy; Z20.822 Contact with and (suspected) exposure to COVID-19
CPT/HCPCS: 36415; 71045; 99284

== ENCOUNTER → 2022-10-05 | Emergency (ER) | payer MEDICAID ==
[~2022-10-05] VITALS: Ht 177.8 cm; Wt 104.3 kg
[2022-10-05 17:54] VITALS: BP_SYST 117
--- NOTE | 2022-10-05 17:57 | NUR ---
Patient triaged and placed in waiting room. VSS and patient appears in no acute distress at this time. Accompanied by SELF, awaiting available bed, and MD notified of need for MSE.
== END | disposition left against medical advice (07) ==
LOC: SED 17:34
DX: R05.9 Cough, unspecified (principal); R19.7 Diarrhea, unspecified; R11.10 Vomiting, unspecified; Z53.21 Procedure and treatment not carried out due to patient leaving prior to being seen by health care provider

== ENCOUNTER 2022-10-20 14:58 | Emergency (ER) | payer MEDICAID ==
[~2022-10-20] VITALS: Ht 177.8 cm; Wt 108.9 kg
[2022-10-20 15:00] VITALS: BP_SYST 141
--- NOTE | 2022-10-20 15:00 | NUR ---
Patient triaged and placed in waiting room. VSS and patient appears in no acute distress at this time. Accompanied by SELF, awaiting available bed, and MD notified of need for MSE.
--- NOTE | 2022-10-20 15:30 | NUR ---
ER DR. ROBERSON EXAMINING PT IN TRIAGE
[2022-10-20 16:01] LABS: BASOPHILS % (AUTO) 0.4 % (0.0-2.0); EOSINOPHILS # (AUTO) 0.1 K/uL (0.0-0.4); EOSINOPHILS % (AUTO) 1.3 % (0.0-4.0); HEMATOCRIT 41.6 % (36-54); HEMOGLOBIN 14.5 g/dL (14.0-18.0); LYMPHOCYTES % (AUTO) 35.3 % (20.5-51.5); MEAN CORPUSCULAR HEMOGLOBIN 29 pg (27-31); MEAN CORPUSCULAR HGB CONC 35 % (32-36); MEAN CORPUSCULAR VOLUME 83 fL (79.0-98.0); MONOCYTES % (AUTO) 11.4 % (1.7-9.3); NEUTROPHILS # (AUTO) 4.4 K/uL (1.8-7.7); NEUTROPHILS % (AUTO) 51.6 % (40.0-70.0); PLATELET COUNT (AUTO) 171 K/uL (130-430); RED BLOOD CELL COUNT(AUTO) 5.02 MIL/uL (4.2-6.2); RED CELL DISTRIBUTION WIDTH 13.1 % (9.0-15.0); WHITE BLOOD COUNT (AUTO) 8.6 K/uL (4.8-10.8)
[2022-10-20 16:18] LABS: ANION GAP 8 (5-15); CALCIUM 9.3 mg/dL (8.4-11.0); CHLORIDE 96 mmol/L (98-107); CREATININE 0.84 mg/dL (0.55-1.30); GLUCOSE 110 mg/dL (70-99); UREA NITROGEN, BLOOD 16 mg/dL (8-21)
[2022-10-20 16:19] LABS: GFR AFRICAN AMERICAN 125 mL/min (>90)
[2022-10-20 16:23] LABS: ALANINE AMINOTRANSFERASE 49 U/L (12-78); ALBUMIN 3.8 g/dL (3.4-4.8); ASPARTATE AMINOTRANSFERASE 37 U/L (10-37); TOTAL BILIRUBIN 0.5 mg/dL (0.0-1.0)
[2022-10-20] MEDS ORDERED: IBUP-1971 PO (18:45)
[2022-10-20] MEDS ORDERED: HYDR-3917 PO (18:45)
[2022-10-20 18:51] VITALS: BP_SYST 128
--- NOTE | 2022-10-20 18:52 | NUR ---
Patient given written and verbal discharge instructions and verbalizes understanding. ER MD discussed with patient the results and treatment provided. Patient in stable condition. ID arm band removed. IV catheter removed intact and dressing applied, no active bleeding. Rx of IBUPROFEN given. Patient educated on pain management and to follow up with PMD. Pain Scale . Opportunity for questions provided and answered. Medication side effect fact sheet provided.
== END 2022-10-20 18:51 | disposition home or self-care (01) ==
LOC: SED 14:58
DX: R05.9 Cough, unspecified (principal); M54.50 Low back pain, unspecified; R06.02 Shortness of breath; I10 Essential (primary) hypertension; Z79.899 Other long term (current) drug therapy
CPT/HCPCS: 36415; 71045; 80053; 83605; 83880; 84484; 85025; 99284

== ENCOUNTER 2022-11-17 11:31 | Emergency (ER) | payer MEDICAID ==
[~2022-11-17] VITALS: Ht 177.8 cm; Wt 108.9 kg
[2022-11-17 11:49] VITALS: BP_SYST 131
[2022-11-17 18:51] VITALS: BP_SYST 125
== END 2022-11-17 15:00 | disposition home or self-care (01) ==
LOC: SED 11:31
DX: G62.9 Polyneuropathy, unspecified (principal); R06.02 Shortness of breath; R20.2 Paresthesia of skin; M79.662 Pain in left lower leg; I10 Essential (primary) hypertension; Z79.899 Other long term (current) drug therapy
CPT/HCPCS: 71045; 93971; 99284

== ENCOUNTER 2023-02-03 12:12 | Emergency (ER) | payer MEDICAID ==
[~2023-02-03] VITALS: Ht 177.8 cm; Wt 104.3 kg
--- NOTE | 2023-02-03 12:28 | NUR ---
PATIENT BIB SELF C/O LEFT KNEE PAIN 04/26 STATES HE TWISTED HIS KNEE PLAYING BASKETBALL APPROX 1 HOUR AGO. ABLE TO MOVE FOOT & TOES. PEDAL PULSES PRESENT. GOOD DISTAL COLOR & CIRCULATION. MED HX OF HTN, HYPOTHYROIDISM. NKA. VSS.
[2023-02-03 12:29] VITALS: BP_SYST 121
--- NOTE | 2023-02-03 12:35 | NUR ---
DR CARPIO AT BEDSIDE
[2023-02-03] MEDS ORDERED: NAPR-688 PO (13:11)
[2023-02-03] MEDS ORDERED: TRAM50TA2 PO (13:14)
[2023-02-03] MEDS ORDERED: IBUPROFEN 600 MG TABLET PO ONE (13:15)
[2023-02-03 13:59] VITALS: BP_SYST 135
--- NOTE | 2023-02-03 14:00 | NUR ---
Patient given written and verbal discharge instructions and verbalizes understanding. ER MD DR CARPIO discussed with patient the results and treatment provided. Patient in stable condition. ID arm band removed. IV catheter removed intact and dressing applied, no active bleeding. Rx of TRAMADOL, MOTRIN given. Patient educated on pain management and to follow up with PMD. Pain Scale 5/10. Opportunity for questions provided and answered. Medication side effect fact sheet provided.
== END 2023-02-03 14:00 | disposition home or self-care (01) ==
LOC: SED 12:12
DX: S83.92XA Sprain of unspecified site of left knee, initial encounter (principal); I10 Essential (primary) hypertension; Z79.899 Other long term (current) drug therapy; W21.05XA Struck by basketball, initial encounter; Y93.67 Activity, basketball; Y92.89 Other specified places as the place of occurrence of the external cause; Y99.8 Other external cause status
CPT/HCPCS: 73564; 99283

== ENCOUNTER 2023-02-17 14:02 | Emergency (ER) | payer MEDICAID ==
[~2023-02-17] VITALS: Ht 177.8 cm; Wt 104.3 kg
[~2023-02-17 14:02] MED LIST changes: +NAPR-688 PO; +TRAM50TA2 PO
[2023-02-17 14:09] VITALS: BP_SYST 135; PULSE 57; RESP 18; TEMP 96.2; O2SAT 94
[2023-02-17] MEDS ORDERED: NACL 0.9% 1,000 ML IV ONE (14:30)
[2023-02-17] MEDS ORDERED: PANTOPRAZOLE SODIUM 40 MG/VIAL (PROTONIX) IVP ONE (14:30)
[2023-02-17] MEDS ORDERED: ONDANSETRON HCL 4 MG/2 ML VIAL IVP ONE (14:30)
[2023-02-17 14:53] LABS: BASOPHILS % (AUTO) 0.2 % (0.0-2.0); EOSINOPHILS # (AUTO) 0.1 K/uL (0.0-0.4); EOSINOPHILS % (AUTO) 1.3 % (0.0-4.0); HEMATOCRIT 39.5 % (36-54); HEMOGLOBIN 13.4 g/dL (14.0-18.0); LYMPHOCYTES # (AUTO) 1.8 K/uL (1.0-5.5); LYMPHOCYTES % (AUTO) 36.4 % (20.5-51.5); MEAN CORPUSCULAR HEMOGLOBIN 29 pg (27-31); MEAN CORPUSCULAR HGB CONC 34 % (32-36); MEAN CORPUSCULAR VOLUME 85 fL (79.0-98.0); MONOCYTES # (AUTO) 0.4 K/uL (0.0-1.0); MONOCYTES % (AUTO) 8.5 % (1.7-9.3); NEUTROPHILS # (AUTO) 2.7 K/uL (1.8-7.7); NEUTROPHILS % (AUTO) 53.6 % (40.0-70.0); PLATELET COUNT (AUTO) 131 K/uL (130-430); RED BLOOD CELL COUNT(AUTO) 4.67 MIL/uL (4.2-6.2)
[2023-02-17 15:07] LABS: ANION GAP 9 (5-15); CALCIUM 8.6 mg/dL (8.4-11.0); CHLORIDE 103 mmol/L (98-107); CREATININE 0.69 mg/dL (0.55-1.30); GFR AFRICAN AMERICAN 157 mL/min (>90); GLUCOSE 102 mg/dL (74-106); UREA NITROGEN, BLOOD 14 mg/dL (8-21)
[2023-02-17 15:13] LABS: ALANINE AMINOTRANSFERASE 38 U/L (12-78); ALBUMIN 3.4 g/dL (3.4-4.8); ASPARTATE AMINOTRANSFERASE 39 U/L (10-37); LIPASE 127 U/L (73-393); TOTAL BILIRUBIN 0.5 mg/dL (0.0-1.0)
[2023-02-17 15:15] LABS: ALCOHOL, BLOOD < 3 mg/dL (<10)
[2023-02-17] MEDS ORDERED: OMEPRAZOLE Non-Formulary 20 MG CAPSULE.DR PO ONE (16:15)
[2023-02-17] MEDS ORDERED: PANTOPRAZOLE SODIUM 40 MG TAB PO ONE (16:15)
[2023-02-17 16:22] VITALS: O2SAT 94
[2023-02-17] MEDS ORDERED: OMEP40CA20 PO (16:42)
[2023-02-17] MEDS ORDERED: ONDA-8 TL (16:42)
[2023-02-17 17:08] VITALS: BP_SYST 125; PULSE 88; RESP 14; TEMP 97.9
== END 2023-02-17 17:04 | disposition home or self-care (01) ==
LOC: SED 14:02
DX: K21.9 Gastro-esophageal reflux disease without esophagitis (principal); A08.4 Viral intestinal infection, unspecified; R11.10 Vomiting, unspecified; Z79.899 Other long term (current) drug therapy
CPT/HCPCS: 99284; 76705; 80053; 82140; 83690; 83735; 85025; 84484; 36415; 93005; G0482; J2405; C9113

== ENCOUNTER 2023-04-02 00:44 | Emergency (ER) | payer MEDICAID ==
[~2023-04-02] VITALS: Ht 177.8 cm; Wt 108.9 kg
[~2023-04-02 00:44] MED LIST changes: +OMEP40CA20 PO; +ONDA-8 TL
[2023-04-02 00:52] VITALS: BP_SYST 133; PULSE 77; RESP 16; TEMP 98; O2SAT 97
[2023-04-02] MEDS ORDERED: IBUPROFEN 600 MG TABLET PO ONE (01:45)
[2023-04-02] MEDS ORDERED: NAPR-690 PO (03:28)
[2023-04-02 03:38] VITALS: BP_SYST 144; PULSE 70; RESP 16; TEMP 97.2; O2SAT 100
== END 2023-04-02 03:39 | disposition home or self-care (01) ==
LOC: SED 00:44
DX: S22.42XA Multiple fractures of ribs, left side, initial encounter for closed fracture (principal); S80.02XA Contusion of left knee, initial encounter; Z79.899 Other long term (current) drug therapy; V28.01XA Electric (assisted) bicycle driver injured in noncollision transport accident in nontraffic accident, initial encounter; Y93.89 Activity, other specified; Y92.89 Other specified places as the place of occurrence of the external cause; Y99.8 Other external cause status
CPT/HCPCS: 71100; 73560-TC; 99284

== ENCOUNTER 2023-04-22 01:56 | Emergency (ER) | payer MEDICAID ==
[~2023-04-22] VITALS: Ht 177.8 cm; Wt 104.3 kg
[~2023-04-22 01:56] MED LIST changes: +NAPR-690 PO
[2023-04-22 02:13] VITALS: BP_SYST 137; PULSE 63; RESP 17; TEMP 97.5; O2SAT 97
[2023-04-22 02:19] VITALS: BP_SYST 137; PULSE 63; RESP 17; TEMP 97.5; O2SAT 97
== END 2023-04-22 02:19 | disposition home or self-care (01) ==
LOC: SED 01:56
DX: F11.90 Opioid use, unspecified, uncomplicated (principal); M79.661 Pain in right lower leg; M79.662 Pain in left lower leg; I10 Essential (primary) hypertension; Z79.899 Other long term (current) drug therapy
CPT/HCPCS: 99281

== ENCOUNTER 2023-06-19 06:36 | Emergency (ER) | payer MEDICAID ==
[~2023-06-19] VITALS: Ht 177.8 cm; Wt 104.3 kg
[~2023-06-19 06:36] MED LIST changes: +SYN75 PO
[2023-06-19] MEDS ORDERED: ONDANSETRON 4 MG ODT TAB PO ONE (07:00)
[2023-06-19] MEDS ORDERED: LIDOINT TP (08:56)
== END 2023-06-19 09:20 | disposition home or self-care (01) ==
LOC: SED 06:36
DX: S22.42XA Multiple fractures of ribs, left side, initial encounter for closed fracture (principal); I10 Essential (primary) hypertension; Z79.899 Other long term (current) drug therapy; W19.XXXA Unspecified fall, initial encounter; Y93.89 Activity, other specified; Y92.89 Other specified places as the place of occurrence of the external cause; Y99.8 Other external cause status
CPT/HCPCS: 99283; 71100; Q0162

== ENCOUNTER 2023-07-01 18:10 | Emergency (ER) | payer MEDICAID ==
[~2023-07-01] VITALS: Ht 177.8 cm; Wt 99.8 kg
[~2023-07-01 18:10] MED LIST changes: +LIDOINT TP
[2023-07-01 18:24] VITALS: BP_SYST 162; PULSE 65; RESP 20; TEMP 97.8; O2SAT 99
[2023-07-01] MEDS ORDERED: KETOROLAC TROMETHAMINE 30 MG VIAL IM ONE (18:45)
[2023-07-01] MEDS ORDERED: RIVA10TA PO (20:25)
[2023-07-01 20:40] VITALS: BP_SYST 170; PULSE 75; RESP 20; TEMP 97.7; O2SAT 97
== END 2023-07-01 20:40 | disposition home or self-care (01) ==
LOC: SED 18:10
DX: B35.3 Tinea pedis (principal); M79.622 Pain in left upper arm; M79.661 Pain in right lower leg; M79.662 Pain in left lower leg; Z86.718 Personal history of other venous thrombosis and embolism; I10 Essential (primary) hypertension; Z79.899 Other long term (current) drug therapy
CPT/HCPCS: 99285; 93970; 93971; 96372; J1885

== ENCOUNTER 2023-09-09 16:34 | Emergency (ER) | payer MEDICAID ==
[~2023-09-09] VITALS: Ht 170.2 cm; Wt 90.7 kg
[~2023-09-09 16:34] MED LIST changes: +RIVA10TA PO
[2023-09-09 16:35] VITALS: BP_SYST 132; PULSE 62; RESP 19; TEMP 98.2; O2SAT 99
[2023-09-09] MEDS ORDERED: NALOXONE HCL 2 MG/2 ML SYR IVP ONE ×2 (16:45→22:15)
[2023-09-09] MEDS ORDERED: NALO4SPR NS (19:09)
[2023-09-09] MEDS ORDERED: NALOXONE HCL 2 MG/2 ML SYR ONE (20:26)
[2023-09-09] MEDS ORDERED: NACL 0.9% 1,000 ML IV ONE (22:15)
[2023-09-09 22:46] LABS: BASOPHILS % (AUTO) 0.2 % (0.0-2.0); EOSINOPHILS % (AUTO) 0.2 % (0.0-4.0); HEMATOCRIT 44.7 % (36-54); HEMOGLOBIN 15.5 g/dL (14.0-18.0); LYMPHOCYTES # (AUTO) 0.4 K/uL (1.0-5.5); LYMPHOCYTES % (AUTO) 4.3 % (20.5-51.5); MEAN CORPUSCULAR HEMOGLOBIN 29 pg (27-31); MEAN CORPUSCULAR HGB CONC 35 % (32-36); MEAN CORPUSCULAR VOLUME 84 fL (79.0-98.0); MONOCYTES # (AUTO) 0.4 K/uL (0.0-1.0); MONOCYTES % (AUTO) 4.3 % (1.7-9.3); NEUTROPHILS # (AUTO) 9.4 K/uL (1.8-7.7); PLATELET COUNT (AUTO) 215 K/uL (130-430); RED BLOOD CELL COUNT(AUTO) 5.34 MIL/uL (4.2-6.2); RED CELL DISTRIBUTION WIDTH 13.1 % (9.0-15.0); WHITE BLOOD COUNT (AUTO) 10.3 K/uL (4.8-10.8)
[2023-09-09 23:05] LABS: ANION GAP 13 (5-15); CALCIUM 8.8 mg/dL (8.4-11.0); CARBON DIOXIDE 23 mmol/L (23-29); CHLORIDE 103 mmol/L (98-107); CREATININE 0.47 mg/dL (0.55-1.30); GFR AFRICAN AMERICAN 244 mL/min (>90); GLUCOSE 111 mg/dL (74-106); POTASSIUM 3.6 mmol/L (3.5-5.1); SODIUM SERUM 139 mmol/L (136-145); UREA NITROGEN, BLOOD 17 mg/dL (8-21)
[2023-09-09 23:07] LABS: GFR NON AFRICAN-AMERICAN 202 mL/min (>90)
[2023-09-09 23:08] LABS: ALCOHOL, BLOOD < 3 mg/dL (<10)
[2023-09-10 00:44] LABS: BARBITURATE, URINE NEGATIVE (NEG <=200); BENZODIAZEPINE, URINE NEGATIVE (NEG <=150); CANNABINOID, URINE NEGATIVE (NEG <=50); COCAINE, URINE NEGATIVE (NEG <=150); METHAMPHETAMINES SCREEN,URINE POSITIVE (NEG <=500); OPIATE, URINE NEGATIVE (NEG <=100); PHENCYCLIDINE SCREEN,URINE NEGATIVE (NEG <=25); UR TRICYCLIC ANTIDEPRESSANTS NEGATIVE (NEG <=300); URINE AMPHETAMINE POSITIVE (NEG <=500); URINE METHADONE NEGATIVE (NEG <=200); URINE OXYCODONE SCREEN NEGATIVE (NEG <=100)
[2023-09-10 06:42] VITALS: BP_SYST 129; PULSE 80; RESP 20; TEMP 98.9; O2SAT 98
== END 2023-09-10 08:07 | disposition home or self-care (01) ==
LOC: SED 16:34
DX: T43.651A Poisoning by methamphetamines accidental (unintentional), initial encounter (principal); F11.20 Opioid dependence, uncomplicated; I10 Essential (primary) hypertension; Z79.899 Other long term (current) drug therapy; Y92.89 Other specified places as the place of occurrence of the external cause
CPT/HCPCS: 99285; 96374; 70450; 71045; 96361; 80307; 80048; 82140; 85025; 36415; 93005; 76376; J2310; J7030; G0482

== ENCOUNTER 2023-10-11 20:12 | Emergency (ER) | payer MEDICAID ==
[~2023-10-11] VITALS: Ht 177.8 cm; Wt 104.3 kg
[~2023-10-11 20:12] MED LIST changes: +NALO4SPR NS
[2023-10-11 20:39] VITALS: BP_SYST 133; PULSE 72; RESP 18; TEMP 98.1; O2SAT 98
== END 2023-10-11 22:25 | disposition left against medical advice (07) ==
LOC: SED 20:12
DX: Z76.0 Encounter for issue of repeat prescription (principal); Z53.21 Procedure and treatment not carried out due to patient leaving prior to being seen by health care provider
CPT/HCPCS: 99281

== ENCOUNTER 2024-04-06 10:08 | Emergency (ER) | payer MEDICAID ==
[~2024-04-06] VITALS: Ht 177.8 cm; Wt 99.8 kg
[2024-04-06 10:08] VITALS: BP_SYST 149; PULSE 72; RESP 18; TEMP 97.5; O2SAT 98
[2024-04-06 11:12] LABS: BASOPHILS % (AUTO) 0.2 % (0.0-2.0); EOSINOPHILS % (AUTO) 0.1 % (0.0-4.0); HEMATOCRIT 39.7 % (36-54); HEMOGLOBIN 13.6 g/dL (14.0-18.0); LYMPHOCYTES # (AUTO) 0.9 K/uL (1.0-5.5); LYMPHOCYTES % (AUTO) 17.8 % (20.5-51.5); MEAN CORPUSCULAR HEMOGLOBIN 29 pg (27-31); MEAN CORPUSCULAR HGB CONC 34 % (32-36); MEAN CORPUSCULAR VOLUME 83 fL (79.0-98.0); MONOCYTES # (AUTO) 0.4 K/uL (0.0-1.0); MONOCYTES % (AUTO) 6.8 % (1.7-9.3); NEUTROPHILS % (AUTO) 75.1 % (40.0-70.0); PLATELET COUNT (AUTO) 172 K/uL (130-430); RED BLOOD CELL COUNT(AUTO) 4.78 MIL/uL (4.2-6.2); WHITE BLOOD COUNT (AUTO) 5.3 K/uL (4.8-10.8)
[2024-04-06 11:27] LABS: PROTHROMBIN TIME 10.8 SECS (9.5-12.5)
[2024-04-06 11:41] LABS: ALANINE AMINOTRANSFERASE 36 U/L (12-78); ALBUMIN 3.6 g/dL (3.4-4.8); ANION GAP 8 (5-15); ASPARTATE AMINOTRANSFERASE 38 U/L (10-37); BILIRUBIN,DIRECT 0.2 mg/dL (0.0-0.3); CALCIUM 8.6 mg/dL (8.4-11.0); CARBON DIOXIDE 26 mmol/L (23-29); CHLORIDE 105 mmol/L (98-107); CREATINE KINASE, TOTAL 307 U/L (39-308); CREATININE 0.64 mg/dL (0.55-1.30); GFR AFRICAN AMERICAN 170 mL/min (>90); GLUCOSE 114 mg/dL (74-106); POTASSIUM 3.6 mmol/L (3.5-5.1); SALICYLATE 3 mg/dL (3-30); SODIUM SERUM 139 mmol/L (136-145); TOTAL BILIRUBIN 0.6 mg/dL (0.0-1.0); TOTAL PROTEIN, SERUM 7.3 g/dL (6.4-8.3); UREA NITROGEN, BLOOD 10 mg/dL (8-21)
[2024-04-06 11:51] LABS: GFR NON AFRICAN-AMERICAN 141 mL/min (>90)
[2024-04-06 11:52] LABS: ACETAMINOPHEN < 1 ug/mL (1-30); ALCOHOL, BLOOD < 3 mg/dL (<10)
[2024-04-06 12:01] LABS: ACETONE, SERUM NEGATIVE (NEGATIVE)
[2024-04-06 12:21] VITALS: BP_SYST 149; PULSE 72; RESP 18; TEMP 97.5; O2SAT 98
[2024-04-06 12:27] LABS: BARBITURATE, URINE NEGATIVE (NEG <=200); BENZODIAZEPINE, URINE NEGATIVE (NEG <=150); CANNABINOID, URINE NEGATIVE (NEG <=50); COCAINE, URINE NEGATIVE (NEG <=150); METHAMPHETAMINES SCREEN,URINE NEGATIVE (NEG <=500); OPIATE, URINE NEGATIVE (NEG <=100); PHENCYCLIDINE SCREEN,URINE NEGATIVE (NEG <=25); UR TRICYCLIC ANTIDEPRESSANTS NEGATIVE (NEG <=300); URINE AMPHETAMINE POSITIVE (NEG <=500); URINE METHADONE NEGATIVE (NEG <=200); URINE OXYCODONE SCREEN NEGATIVE (NEG <=100)
== END 2024-04-06 12:20 ==
LOC: SED 10:08
DX: R40.4 Transient alteration of awareness (principal); R07.89 Other chest pain; R41.0 Disorientation, unspecified; I10 Essential (primary) hypertension; E03.9 Hypothyroidism, unspecified; Z79.899 Other long term (current) drug therapy; Z79.2 Long term (current) use of antibiotics
CPT/HCPCS: 99284; 70450; 80307; 80076; 80048; 82009; 82140; 82550; 85025; 85610; 85730; 84484; 36415; 93005; 83605; 82397; G0482; G0480; G0481